=== PATIENT | female | born 2000 | race Caucasian/White ===

== ENCOUNTER 2022-06-14 07:59 | Emergency (ER) | payer BC, SELFPAY ==
[2022-06-14 08:20] VITALS: PULSE 76; RESP 16; TEMP 36.7; O2SAT 99; BMI 24.2
--- NOTE | 2022-06-14 08:40 | ED.EAR ---
HPI - Ear Problem General Chief complaint: Ear/Nose/Throat Problem Stated complaint: ear infection Time Seen by Provider: 06/14/22 08:35 History of Present Illness HPI Narrative: This 21-year-old female comes in with pain in her left ear and wonders if she might have an ear infection. She does have some sore throat and nasal congestion. Her symptoms started a couple days ago. She states that she has a history of 2 other ear infections over the past year or so. The last 1 was several months ago. She has not had any problem with ear infections prior to this. She is hoping to leave by car today to return home for [place] in [place]. Related Data Previous Rx's Medication Instructions Recorded amoxicillin 500 mg capsule 500 mg PO TID 10 days #30 caps 06/14/22 Allergies Allergy/AdvReac Type Severity Reaction Status Date / Time No Known Drug Allergies Allergy Verified 06/14/22 08:24 Review of Systems Status of ROS: Reports: 10 or more systems reviewed and unremarkable except as noted in History and below Narrative: Constitutional: No fevers, no weight gain or loss. Eyes: No discharge. No vision changes. HENT: Nasal congestion. Sore throat. Left ear pain. Cardiovascular: No chest pain, no palpitations. Respiratory: No shortness of breath, no wheezes, no cough. Gastrointestinal: No abdominal pain, no vomiting, no diarrhea. Genitourinary: No dysuria, no hematuria. Musculoskeletal: Normal range of motion. Skin: No rashes, no pruritis. Neurological: No dizziness, weakness, sensory change, speech change. Endo/Heme/Allergies: No bruising or bleeding. No polydipsia. Pysch: no suicidality, no anxiety, no insomnia. All other systems reviewed and are negative. Exam Narrative: Exam Narrative: Constitutional: Well-developed, well-nourished, no acute distress. HEENT: Normocephalic, atraumatic. Right tympanic membrane appears normal. Left tympanic membrane is bulging with purulence behind the membrane. Neck: Normal range of motion. Nontender. Supple. Heart: Regular. No murmurs. Normal rate. Intact distal pulses. Lungs: Clear to auscultation. No chest discomfort. No wheezes, rhonchi, or rales. Abdomen: Normal bowel sounds. Nontender. No rebound tenderness. Genitalia: Deferred. Back: No midline tenderness. Normal range of motion. Extremities: Normal range of motion. No injury. Skin: Intact. No rash. Warm. No erythema or pallor. Neurologic: No altered sensation. No weakness. Alert and oriented. Psychiatric: No suicidality. No anxiety or depression. No insomnia. Nursing notes and vitals signs are reviewed. Const: Vital Signs, click to edit/add: Vital Signs - 24 hr 06/14/22 08:20 Temperature 98.1 F Pulse Rate [Right Pulse Oximeter] 76 Respiratory Rate 16 Pulse Oximetry 99 Oxygen Delivery Me thod Room Air Course Vital Signs Vital signs: Initial Vital Signs Temperature 98.1 F 06/14/22 08:20 Temperature Source Temporal Artery Scan 06/14/22 08:20 Pulse Rate 76 06/14/22 08:20 Pulse Rhythm 06/14/22 08:20 Respiratory Rate 16 06/14/22 08:20 Pulse Oximetry 99 06/14/22 08:20 Oxygen Delivery Method 06/14/22 08:20 Vital Signs Temperature 98.1 F 06/14/22 08:20 Pulse Rate 76 06/14/22 08:20 Respiratory Rate 16 06/14/22 08:20 Pulse Oximetry 99 06/14/22 08:20 Oxygen Delivery Method 06/14/22 08:20 Temperature 98.1 F 06/14/22 08:20 Pulse Rate 76 06/14/22 08:20 Respiratory Rate 16 06/14/22 08:20 Pulse Oximetry 99 06/14/22 08:20 Oxygen Delivery Method 06/14/22 08:20 Medical Decision Making MDM Narrative Medical decision making narrative: This patient arrives with symptoms related to left otitis media. She received a prescription for amoxicillin and is encouraged to use [id number] medicines as needed and directed. Discharge Plan Discharge Clinical Impression: Otitis media Patient Disposition: Home, Self-Care Condition: Unchanged Additional Instructions: Take medication as prescribed. Use [id number] medicines also as needed and directed. Follow up with MD or return if worsening. Prescriptions: New amoxicillin 500 mg capsule 500 mg PO TID 10 Days Qty: 30 0RF Stand Alone Forms: Communication Science Info Instructions
== END 2022-06-14 09:09 | disposition home or self-care (01) ==
LOC: ED 08:58
PROVIDERS: Emergency Provider Emergency Medicine Emergency Medical Services
DX: H66.92 Otitis media, unspecified, left ear (principal)
CPT/HCPCS: 99283; 99284